=== PATIENT | male | born 1965 | race Hispanic/Latino ===

== ENCOUNTER 2017-11-29 11:38 | Outpatient (CLI) | payer MEDICARE ==
--- NOTE | 2017-11-29 12:55 | XRay Report ---
Chest 2 views: History: Tobacco abuse. Findings: Normal cardiomediastinal silhouette. Trachea is midline. No consolidation, pneumothorax or pleural effusion. Impression: No acute cardiopulmonary findings.
== END 2017-11-29 11:39 | disposition home or self-care (01) ==
LOC: XRAY 11:38
PROVIDERS: ATTEND Internal Medicine
DX: Z72.0 Tobacco use (principal)
CPT/HCPCS: 71046

== ENCOUNTER 2020-08-29 10:13 | Outpatient (CLI) | payer MEDICARE ==
--- NOTE | 2020-08-29 12:08 | Magnetic Resonance Report ---
MR brain wo con INDICATION / CLINICAL INFORMATION: 55 years Male; CVA,TOBACCO ABUSE,HISTORY OF HIV INFECTION, ANTICOAGULATED. TECHNIQUE: Multiplanar, multisequence MR images of the brain were obtained. COMPARISON: None available. FINDINGS: BRAIN / INTRACRANIAL CONTENTS: There is a focus of increased diffusion signal within the left centrum semiovale vision 1.6 cm transversely most consistent with acute/subacute infarct given the history. Given the location, configuration and solitary finding, infectious process would be atypical though c orrelation would be a needed given the immunocompromised status. There are otherwise mild periventricular white matter changes indicative of microvascular angiopathy. The ventricular system is appropriate in size and configuration. No extra-axial fluid collections ar e identified. CRANIOCERVICAL JUNCTION: No significant abnormality. VASCULAR FLOW-VOIDS: There is heterogeneous signal within the distal left vertebral artery indicative of occlusion or decreased flow. The MR a head will be dictated separately. ORBITS: No significant abnormality of visualized orbits. SINUSES / MASTOIDS: There is prominent mucosal thickening within the maxillary sinuses bilaterally. M ilder findings are seen at within the ethmoid and sphenoid sinuses. ADDITIONAL FINDINGS: None. IMPRESSION: 1. The findings are most consistent with a 1.6 cm acute/subacute infarct involving the left centrum s emiovale as detailed above. 2. There is heterogeneous signal within the distal left vertebral artery indicative of occlusion or v deep slow flow. 3. There is sinus inflammatory disease as described, most notably involving maxillary sinuses. Signer Name: Denzel Selby MD Signed: 08/29/2020 12:04 PM Workstation Name: [id number]
--- NOTE | 2020-08-29 12:15 | Magnetic Resonance Report ---
MR MRA/MRV head wo con INDICATION / CLINICAL INFORMATION: 55 years Male; CVA,TOBACCO ABUSE,HISTORY OF HIV INFECTION, ANTICOAGULATED. TECHNIQUE: 3-D time of flight. NASCET type criteria used to evaluate stenoses. COMPARISON: None available. 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 There is no signific ant focal stenosis of the internal carotid arteries. VERTEBROBASILAR SYSTEM: There is faint signal within the proximal intracranial left vertebral artery which may reflect occlusion or possibly very slow flow. More notable signal seen at within the distal most segment including the left PICA which may reflect retrograde flow. The right vertebral artery i s clearly dominant without focal narrowing. The basilar artery is unremarkable. CEREBRAL ARTERIES: Other within the right A1 segment, the remaining proximal cerebral arteries demons trate appropriate caliber without significant focal stenosis. ANEURYSM: The findings are most consistent with incidental infundibulum along the distal left basilar artery.. There is also prominence of the anterior communicating artery related to the hypoplasia of the right A1 segment. This finding also appears to be exacerbated by the degree of motion on the sour ce imaging. IMPRESSION: There is occlusion or very slow flow involving proximal intracranial left ICA with findings indicativ e of component of retrograde flow more distally. 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 Signer Name: Denzel Selby MD Signed: 08/29/2020 12:10 PM Workstation Name: [id number]
== END 2020-08-29 10:14 | disposition home or self-care (01) ==
LOC: MRI 10:13
PROVIDERS: ATTEND Internal Medicine Cardiovascular Disease
DX: G93.89 Other specified disorders of brain (principal); J32.0 Chronic maxillary sinusitis; B20 Human immunodeficiency virus [HIV] disease; I10 Essential (primary) hypertension; Z79.01 Long term (current) use of anticoagulants; Z86.73 Personal history of transient ischemic attack (TIA), and cerebral infarction without residual deficits
CPT/HCPCS: 70544; 70551

== ENCOUNTER 2020-09-28 06:24 | Outpatient (CLI) | payer MEDICARE ==
[2020-09-28] MEDS ORDERED: SODIUM CHLORIDE 0.9% 1000 ML 1,000 ML IV SCH (07:45)
[2020-09-28] MEDS ORDERED: BENZOCAINE 20% TOP SPRAY 0.5 ML UNIT DOSE MM NR (08:00)
[2020-09-28 08:06] LABS: Hematocrit 39.7 % (35.5-45.6); Hemoglobin 13.5 gm/dl (11.8-15.2); Mean Corpuscular HGB Conc 34 % (32-34); Mean Corpuscular Volume 89 fl (84-94); Platelet Count 169 K/mm3 (140-440); Red Blood Count 4.47 M/mm3 (3.65-5.03); Red Cell Distribution Width 14.5 % (13.2-15.2)
[2020-09-28 08:16] LABS: INR 1.05 (0.87-1.13); Partial Thromboplastin Time 26.7 Sec. (24.2-36.6)
[2020-09-28] MEDS ORDERED: LIDOCAINE MPF (2%) 20 MG/1 ML VIAL 5 ML ONE (08:22)
[2020-09-28] MEDS ORDERED: propofoL 200 MG/20 ML VIAL IV ONE ×2 (08:22)
--- NOTE | 2020-09-28 08:25 | Anesthesia Consultation ---
Anesthesia Consult and Med Hx Date of service: 09/28/20 - Airway Anesthetic Teeth Evaluation: Dentures (upper) ROM Head & Neck: Adequate Mental/Hyoid Distance: Adequate Mallampati Class: Class II Intubation Access Assessment: Probably Good - Pulmonary Exam CTA: Yes - Cardiac Exam Cardiac Exam: RRR - Pre-Operative Health Status ASA Pre-Surgery Classification: ASA3 Proposed Anesthetic Plan: MAC - Pulmonary Hx Smoking: Yes Hx Respiratory Symptoms: No COPD: Yes Home Oxygen Therapy: No - Cardiovascular System Hx Hypertension: Yes Hx Coronary Artery Disease: Yes (non-obstructive CAD on [facility] 2018) Hx Heart Attack/AMI: No Hx Percutaneous Transluminal Coronary Angioplasty (PTCA): No Hx Cardia Arrhythmia: Yes (hx a-fib in 2018; NSR on most recent EKG) Hx Pacemaker: No Hx Internal Defibrillator: No Hx Valvular Heart Disease: No - Central Nervous System CVA: Yes (x2 this year; no deficits) - Endocrine Hx Renal Disease: No Hx Liver Disease: No Hx Insulin Dependent Diabetes: Yes Hx Thyroid Disease: No - Other Systems Hx Obesity: Yes (BMI 31) - Additional Comments Anesthesia Medical History Comments: No hx anesthetic complications. Recent cardiology eval reviewed. Recent normal TTE (nondiagnostic bubble study) and stress test.
--- NOTE | 2020-09-28 08:26 | Anesthesia Day of Surgery ---
Anesthesia Day of Surgery - Day of Surgery Patient Examined: Yes Patient H&P Reviewed: Yes Patient is NPO: Yes Beta Blockers: Yes (metoprolol yesterday PM)
[2020-09-28 09:15] LABS: BUN/Creatinine Ratio 14; Blood Urea Nitrogen 13 mg/dL (9-20); Hemolysis Index 14
--- NOTE | 2020-09-28 10:10 | Post Anesthesia Evaluation ---
- Post Anesthesia Evaluation Patient Participated: Yes Airway Patent: Yes Stable Respiratory Function: Yes Nausea/Vomiting: No Temp > 96.8F: Yes Pain Manageable: Yes Adequeate Hydration: Yes Anesthesia Complications: No
[2020-09-28 12:06] VITALS: BP 138/84
== END 2020-09-28 12:20 | disposition home or self-care (01) ==
LOC: CATHLABREC 06:24
PROVIDERS: ATTEND Internal Medicine
DX: Z20.828 Contact with and (suspected) exposure to other viral communicable diseases (principal); I70.0 Atherosclerosis of aorta; I34.0 Nonrheumatic mitral (valve) insufficiency; Q21.1 Atrial septal defect; Z86.73 Personal history of transient ischemic attack (TIA), and cerebral infarction without residual deficits
CPT/HCPCS: 36415; 80048; 85027; 85610; 85730; 93312; 93320; 93325; J2704; J7030; U0003